=== PATIENT | female | born 2000 | race Caucasian/White ===

== ENCOUNTER 2021-03-13 22:52 | Emergency (ER) | payer OTHER, SELFPAY ==
[~2021-03-13] VITALS: Ht 160 cm; Wt 52.0 kg
[2021-03-13 22:58] VITALS: BP 115/71
[2021-03-14] MEDS ORDERED: NEOSPORIN OINT. PKT 1 PACKET ONE (01:02)
== END 2021-03-14 01:29 | disposition home or self-care (01) ==
LOC: ED 22:57
DX: S62.637A Displaced fracture of distal phalanx of left little finger, initial encounter for closed fracture (principal); S60.052A Contusion of left little finger without damage to nail, initial encounter; X58.XXXA Exposure to other specified factors, initial encounter; Y93.89 Activity, other specified; Y92.89 Other specified places as the place of occurrence of the external cause; Y99.8 Other external cause status
CPT/HCPCS: 29130; 99283